=== PATIENT | female | born 1960 | race Caucasian/White ===

== ENCOUNTER → 2023-04-21 11:40 | Outpatient (CLI) | payer OTHER, SELFPAY ==
--- NOTE | ~2023-04-21 | US_ITS ---
EXAMINATION:US venous doppler LE LT INDICATION:Venous insufficiency. TECHNIQUE: Multiple grayscale, color flow and Doppler images of the left lower extremity deep venous systems were obtained and reviewed. COMPARISON:No prior studies for comparison. FINDINGS: The common femoral, superficial femoral and popliteal veins demonstrate normal respiratory variation, augmentation and compressibility. Color flow is also seen within the posterior tibial, pe roneal, and profunda veins. There is superficial venous thrombosis of the greater saphenous vein. IMPRESSION: 1: No lower extremity deep venous thrombosis. 2: Superficial venous thrombosis of the greater saphenous vein. Reviewed, dictated and finalized at location B. ARCHITECT
== END ==
PROVIDERS: PCP Internal Medicine Cardiovascular Disease; Visit Provider Internal Medicine Cardiovascular Disease
DX: I82.812 Embolism and thrombosis of superficial veins of left lower extremity (principal); I87.2 Venous insufficiency (chronic) (peripheral); E11.51 Type 2 diabetes mellitus with diabetic peripheral angiopathy without gangrene; I11.0 Hypertensive heart disease with heart failure; I50.9 Heart failure, unspecified
CPT/HCPCS: 93971

== ENCOUNTER 2024-08-14 07:13 | Outpatient (RCR) | payer OTHER, SELFPAY ==
[2024-08-06 14:29] VITALS: BMI 39.5
== END 2024-10-21 13:10 | disposition home or self-care (01) ==
LOC: ANHWOC 07:13
PROVIDERS: PCP Internal Medicine; Visit Provider Internal Medicine Cardiovascular Disease
DX: I87.2 Venous insufficiency (chronic) (peripheral) (principal)
CPT/HCPCS: 29581; 99214; A9270; G0463